=== PATIENT | male | born 1985 | race Caucasian/White ===

== ENCOUNTER 2022-09-06 17:55 | Emergency (ER) | payer SELFPAY ==
[2022-09-06 18:00] VITALS: BP 124/62; PULSE 100; RESP 16; TEMP 36.4; O2SAT 98; BMI 24.4
--- NOTE | 2022-09-06 18:41 | ED.SKABFB ---
HPI - Skin/Abscess/Foreign Bdy General Chief complaint: Skin/Abscess/Foreign Body Stated complaint: CELLULITIS IN ARMPIT Time Seen by Provider: 09/06/22 18:18 History of Present Illness HPI narrative: This 37-year-old male comes in requesting a change of the packing in a left axillary abscess. He began having evidence of infection an abscess in the left axillary region about a week ago but was incarcerated and did not have access to medical care. After being discharged he went into clinic yesterday and had incision and drainage. He has started taking Bactrim. He comes in today because that clinic is not open and is instructed to have the packing changed. Related Data Allergies Allergy/AdvReac Type Severity Reaction Status Date / Time amoxicillin Allergy Verified 09/06/22 18:07 penicillin V AdvReac Verified 09/06/22 18:07 Review of Systems Status of ROS: Reports: 10 or more systems reviewed and unremarkable except as noted in History and below Narrative: Constitutional: No fevers, no weight gain or loss. Eyes: No discharge. No vision changes. HENT: No congestion, no sore throat, no ear pain. Cardiovascular: No chest pain, no palpitations. Respiratory: No shortness of breath, no wheezes, no cough. Gastrointestinal: No abdominal pain, no vomiting, no diarrhea. Genitourinary: No dysuria, no hematuria. Musculoskeletal: Normal range of motion. Skin: No rashes, no pruritis. Left axillary abscess. Neurological: No dizziness, weakness, sensory change, speech change. Endo/Heme/Allergies: No bruising or bleeding. No polydipsia. Pysch: no suicidality, no anxiety, no insomnia. All other systems reviewed and are negative. Exam Narrative: Exam Narrative: Constitutional: Well-developed, well-nourished, no acute distress. HEENT: Normocephalic, atraumatic. Neck: Normal range of motion. Nontender. Supple. Heart: Regular. No murmurs. Normal rate. Intact distal pulses. Lungs: Clear to auscultation. No chest discomfort. No wheezes, rhonchi, or rales. Abdomen: Normal bowel sounds. Nontender. No rebound tenderness. Genitalia: Deferred. Back: No midline tenderness. Normal range of motion. Extremities: Normal range of motion. No injury. Skin: Intact. No rash. Left axillary region has erythema that is decreased significantly from the ink line that was drawn around its border yesterday. There is packing in gauze in place. Neurologic: No altered sensation. No weakness. Alert and oriented. Psychiatric: No suicidality. No anxiety or depression. No insomnia. Nursing notes and vitals signs are reviewed. Const: Vital Signs, click to edit/add: Vital Signs - 24 hr 09/06/22 18:00 Temperature 97.6 F Pulse Rate [Left P ulse Oximeter] 100 Respiratory Rate 16 Blood Pressure [Ri ght Upper Arm] 124/62 Pulse Oximetry 98 Oxygen Delivery Me thod Room Air Course Vital Signs Vital signs: Initial Vital Signs Temperature 97.6 F 09/06/22 18:00 Temperature Source Temporal Artery Scan 09/06/22 18:00 Pulse Rate 100 09/06/22 18:00 Respiratory Rate 16 09/06/22 18:00 Blood Pressure 124/62 09/06/22 18:00 Blood Pressure Mean 82 09/06/22 18:00 Pulse Oximetry 98 09/06/22 18:00 Oxygen Delivery Method 09/06/22 18:00 Vital Signs Temperature 97.6 F 09/06/22 18:00 Pulse Rate 100 09/06/22 18:00 Respiratory Rate 16 09/06/22 18:00 Blood Pressure 124/62 09/06/22 18:00 Pulse Oximetry 98 09/06/22 18:00 Oxygen Delivery Method 09/06/22 18:00 Temperature 97.6 F 09/06/22 18:00 Pulse Rate 100 09/06/22 18:00 Respiratory Rate 16 09/06/22 18:00 Blood Pressure 124/62 09/06/22 18:00 Pulse Oximetry 98 09/06/22 18:00 Oxygen Delivery Method 09/06/22 18:00 MDM - Skin/Abscess/Foreign Bdy MDM Narrative Medical decision making narrative: This patient comes in for change of his packing and dressing on the left axillary abscess that was treated yesterday. I removed the packing and placed 1 quarter-inch iodoform gauze back into the abscess opening. This was covered by a nonstick dressing. The wound appears to be healing normally. He is okay to be discharged home to continue his current plans and follow-up with his doctor as scheduled. Discharge Plan Discharge Clinical Impression: Abscess of skin or subcutaneous tissue Patient Disposition: Home, Self-Care Condition: Stable Additional Instructions: Keep dressing in place. Follow-up with primary physician as scheduled. Return if worsening. Stand Alone Forms: [employer] Info Instructions
--- OUTSIDE RECORDS SUMMARY | 2022-09-06 18:50 | XMS_ITS | Encounter Summary ---
:1985 Author Organization [facility] Address [address] [place] [address] Care Team Providers Name Role Phone No Contact, Pcp Primary Care Provider Unavailable Reason for Visit Reason Comments Medication Problem Encounter Details Date Type Department Care Team Description 09/06/2022 Clinical Communication [facility] of [facility] [place] Velva, Jammie, M.S.N. [address] [phone] Social History Tobacco Use Types Packs/Day Years Used Date Smoking Tobacco: Every Day Cigarettes 1 Smokeless Tobacco: Never Alcohol Use Standard Drinks/Week Comments Not Currently 0 (1 standard drink = 0.6 oz pure alcoho l) Sex Assigned at Date Recorded Not on file documented as of this encounter Miscellaneous Notes Telephone Encounter - Christy Griffiths, C.M.A. - 09/06/2022 3:34 PM CDT I called the Pharmacy pt has not picked up his RX. documented in this encounter Plan of Treatment Not on filedocumented as of this encounter Visit Diagnoses Not on filedocumented in this encounter Care Teams Gun Club Manager Relationship Specialty Start Date End Date No Contact, Pcp PCP - General Family Medicine 05/15/21 documented as of this encounter
--- OUTSIDE RECORDS SUMMARY | 2022-09-06 18:50 | XMS_ITS | Clinical Summary ---
:1985 Author Organization [facility] Address [address] [place] [address] Care Team Providers Name Role Phone No Contact, Pcp Primary Care Provider Unavailable Source Comments Patient records contain information from all sites at [facility]. For routine questions regarding patient records, call [phone] during business hours, M-F 8:00 AM - 5:00 PM Central Time. Record requests for emergency care only can be directed to [phone] at any time.[facility] Allergies Active Allergy Reactions Severity Noted Date Comments Amoxicillin Rash 06/27/2018 Penicillins Rash 09/21/2008 Medications Medication Sig Dispensed Refills Start Date End Date Status sulfamethoxazole-trim Take 1 tablet by 14 tablet 0 09/05/2022 09/15/2022 Active ethoprim (BACTRIM DS) mouth every 12 800-160 mg per tablet (twelve) hours for 10 days. Active Problems No known active problems Encounters Date Type Specialty Care Team Description 09/06/2022 Clinical Communication Family Medicine Angela, Me dication Problem ALTAF Shanks, C.N.P., M.S.N. 09/05/2022 Ancillary Procedure Arrived 09/05/2022 Office Visit Family Medicine Angela, Abscess Ches t (Primary Dx); ALTAF Shakns, Cellulitis Ches t C.N.P., M.S.N. 09/05/2022 Clinical Communication Family Medicine [place] Miller APRN, C.N.P., M.S.N. from Last 3 Months Immunizations Name Administration Dates Next Due H1N1 All Forms 11/23/2009 Tdap 06/27/2018 Social History Tobacco Use Types Packs/Day Years Used Date Smoking Tobacco: Every Day Cigarettes 1 Smokeless Tobacco: Never Tobacco Cessation: Ready to Quit: Not As ked; Counseling Given: Not Answered Alcohol Use Standard Drinks/Week Comments Not Currently 0 (1 standard drink = 0.6 oz pure alcoho l) Sex Assigned at Date Recorded Not on file Last Filed Vital Signs Vital Sign Reading Time Taken Comments Blood Pressure 139/83 09/05/2022 3:11 PM CDT Pulse 99 09/05/2022 3:11 PM CDT Temperature 35.2 ??C (95.4 ??F) 09/05/2022 3:11 PM CDT Respiratory Rate 20 09/05/2022 3:11 PM CDT Oxygen Saturation - - Inhaled Oxygen Concentration - - Weight 84 kg (185 lb 1.6 oz) 09/05/2022 3:11 PM CDT Height 182.9 cm (6') 09/05/2022 3:11 PM CDT Body Mass Index 25.1 09/05/2022 3:11 PM CDT Plan of Treatment Health Maintenance Due Date Last Done Comments HIV Screening 1986 Hepatitis B Vaccines (1 of 3 - 3-dose series) 1986 Hepatitis C Screening 1986 Lipid (Cholesterol) Screening 1986 Tobacco Cessation counseling 1986 COVID-19 Vaccine (#1) 1986 Pneumococcal vaccine (0-64 years) (1 - PCV) 1992 Depression Screening (Annual PHQ-2) 11/25/2021 Influenza Vaccine (#1) 2022 DTaP,Tdap,and Td Vaccines (2 - Td or Tdap) 06/27/202806/27 Procedures Procedure Name Priority Date/Time Associated Diagnosis Comme nts CBC WITH Routine 09/05/2022 4:07 PM Abscess Chest Results for this DIFFERENTIAL, B CDT procedure ar e in the results section. BASIC METABOLIC Routine 09/05/2022 4:07 PM Abscess Chest Resul ts for this PANEL, S/P CDT procedure are i n the results section. C-REACTIVE PROTEIN Routine 09/05/2022 4:07 PM Abscess Chest Re sults for this (CRP), S/P CDT procedure are i n the results section. FAMILY MEDICINE Routine 09/05/2022 3:35 PM Result s for this IMAGE EXAM CDT procedure are i n the results section. INCISION AND Routine 09/05/2022 3:30 PM Abscess Chest Results for this DRAINAGE CDT procedure are i n the results section. from Last 3 Months Results (ABNORMAL) CBC with Differential, Blood (09/05/2022 4:07 PM CDT) [facility] gist Method Time Signature Hemoglobin 15.2 13.2 - 09/05/2022 [facility] 16.6 g/dL 9:43 PM CDT Hematocrit 45.9 38.3 - 09/05/2022 [facility] 48.6 % 9:43 PM CDT Erythrocytes 4.97 4.35 - 09/05/2022 [facility] 5.65 9:43 PM CDT x10(12)/L MCV 92.4 78.2 - 09/05/2022 [facility] 97.9 fL 9:43 PM CDT RBC Distrib Width 13.6 11.8 - 09/05/2022 [facility] 14.5 % 9:43 PM CDT Platelet Count 212 135 - 317 09/05/2022 [facility] x10(9)/L 9:43 PM CDT Leukocytes 10.8 (H) 3.4 - 9.6 09/05/2022 [facility] x10(9)/L 9:43 PM CDT Neutrophils 7.77 (H) 1.56 - 09/05/2022 [facility] 6.45 9:43 PM CDT x10(9)/L Lymphocytes 1.59 0.95 - 09/05/2022 [facility] 3.07 9:43 PM CDT x10(9)/L Monocytes 1.39 (H) 0.26 - 09/05/2022 [facility] 0.81 9:43 PM CDT x10(9)/L Eosinophils 0.00 (L) 0.03 - 09/05/2022 [facility] 0.48 9:43 PM CDT x10(9)/L Basophils 0.03 0.01 - 09/05/2022 [facility] 0.08 9:43 PM CDT x10(9)/L Specimen Anatomical Collection Method Collection Time Receive d Time (Source) Location / / Volume Laterality Blood (Blood, 09/05/2022 4:07 PM 09/05/20 22 9:37 Venous) CDT PM CDT [place] Miller APRN, C.N.P., M.S.N. LAB BLOOD ADD-ON Performing Organization Address City/State/ZIP Code Phon e Number [facility] [phone] [place] [address] System in [address] (ABNORMAL) CRP (C-Reactive Protein) (09/05/2022 4:07 PM CDT) athologist Signature C-Reactive 75.2 (H) <=8.0 mg/L 09/05/2022 [facility] Protein (CRP), 9:50 PM CDT P Specimen Anatomical Collection Method Collection Time Receive d Time (Source) Location / / Volume Laterality Blood (Blood, 09/05/2022 4:07 PM 09/05/20 9:37 Venous) CDT PM CDT Jamil Reich APRN.N.P., M.S.N. LAB BLOOD ADD-ON Performing Organization Address City/State/ZIP Code Phon e Number [phone] [place] [address] System [address] Basic Metabolic Panel (09/05/2022 4:07 PM CDT) athologist Signature Potassium, P 4.6 3.6 - 5.2 09/05/2022 [facility] mmol/L 9:50 PM CDT Sodium, P 138 135 - 145 09/05/2022 [facility] mmol/L 9:50 PM CDT Chloride, P 100 98 - 107 09/05/2022 [facility] mmol/L 9:50 PM CDT Bicarbonate, P 28 22 - 29 09/05/2022 [facility] mmol/L 9:50 PM CDT Anion Gap, P 10 7 - 15 09/05/2022 [facility] 9:50 PM CDT BUN (Blood Urea 22 8 - 24 09/05/2022 [facility] Nitrogen), P mg/dL 9:50 PM CDT Creatinine 1.11 0.74 - 09/05/2022 [facility] 1.35 mg/dL 9:50 PM CDT Estimated GFR 88 >=60 09/05/2022 [facility] (eGFR) mL/min/BSA 9:50 PM CDT Comment: Estimated GFR calculated using the 2020 CKD_EPI creatinine equation. Calcium, Total, P 9.1 8.6 - 10.0 mg/dL 09/05/2022 9:50 PM CDT [facility] Glucose, P 93 70 - 140 mg/dL 09/05/2022 9:50 PM CDT [facility] Specimen Anatomical Collection Method Collection Time Receive d Time (Source) Location / / Volume Laterality Blood (Blood, 09/05/2022 4:07 PM 09/05/20 22 9:37 Venous) CDT PM CDT Farhan Reich APRNNBoyd, M.S.N. LAB BLOOD ADD-ON Performing Organization Address City/[facility]/ZIP Code Phon e Number [facility]- [address] [place] [address] [phone] [facility] [place] [address] [address] Chest-Family Medicine Image Exam (09/05/2022 3:35 PM CDT) Specimen (Source) Anatomical Collection Method Collection Time Re ceived Time Location / / Volume Laterality 09/05/2022 3:33 PM CDT Narrative [facility] - 09/05/2022 3:35 PM CDT This order has been created and auto-finalized to support the import of images acquired without order. The clini nori documentation to support these images can be found on the encounter ashley t produced images. Provider Not In System IMG NON RAD IMAGING PROCEDUR ES Performing Organization Address City/[facility] Code Phon e Number [facility] NA Incision and Drainage (09/05/2022 3:30 PM CDT) Narrative [place] Miller APRN, Jamil.N.Aleida., M.S.N. - 09/05/2022 3:30 PM CDT [place] Miller APRN, C.N.PWinter, M.S.N. ? 09/05/2022 ??8:52 PM Incision and Drainage Performed by: [place]ma Miller APRN, Jamil .N.P., M.S.N. Authorized by: Rimma Miller APRN, Jamil.N.PWinter, M.S.N. Care team members present 1. Rimma Miller APRN, C.N.Aleida., M.S. N. 3. Christy Griffiths C.M.A. 5. Inna Ferguson L.P.N. PROCEDURE DETAILS Complexity: simple Ultrasound image guidance used to locali ze target, identify at risk structures, and dynamically used to dire ct therapy to the target. Image(s) not saved. Needle aspiration: no ?? Incision types: stab incision Incision depth: dermal Incision length (cm): 1 Scalpel blade: 11 Wound management: manually decompressed Drainage: purulent Drainage amount: copious Fluid removed amount (mL): 30 Specimen: specimen sent per request Wound treatment: wound packed Packing materials: 11/28 in iodoform gauze Procedural Medication The following medications were administe red at the target site(s): ?? 1 mL lidocaine-EPINEPHrine 1 %-1:100,000 CONSENT Consent obtained: verbal Consent given by: patient PRE PROCEDURE DETAILS Indication: abscess Location: axilla Axilla location: left axilla Length (cm): 6 Width (cm): 6 Site preparation: chlorhexidine SEDATION / ANESTHESIA Anesthesia method: local infiltration Local anesthetic: lidocaine 1% WITH epi POST PROCEDURE DETAILS Procedure completed successfully: yes ?? Tetanus status up to date: ??Up to date Complications: no immediate complication s ?? Comments Patient tolerated I and D fairly with so me pain Mildly tachycardic upon arrival After I and D , heart rate slowed Iodoform packing placed Lesion is infected, antibiotics prescrib ed Re-eval tomorrow with colleague Rimma Miller APRN, C.N.P., M.S.N. PROCEDURE/MINOR SURGICAL ORDERABLES from Last 3 Months Care Teams Vice President Of Instruction Relationship Specialty Start Date End Date No Contact, Pcp PCP - General Family Medicine 05/15/21
--- OUTSIDE RECORDS SUMMARY | 2022-09-06 18:50 | XMS_ITS | Encounter Summary ---
:1985 Author Organization [facility] Address [address] [place] [address] Care Team Providers Name Role Phone No Contact, Pcp Primary Care Provider Unavailable Encounter Details Date Type Department Care Team Description 09/05/2022 Clinical Communication [facility] M.S.N. [address] [place] [phone] Social History Tobacco Use Types Packs/Day Years Used Date Smoking Tobacco: Every Day Cigarettes 1 Smokeless Tobacco: Never Alcohol Use Standard Drinks/Week Comments Not Currently 0 (1 standard drink = 0.6 oz pure alcoho l) Sex Assigned at Date Recorded Not on file documented as of this encounter Plan of Treatment Not on filedocumented as of this encounter Visit Diagnoses Not on filedocumented in this encounter Care Teams Financial Services Professional Relationship Specialty Start Date End Date No Contact, Pcp PCP - General Family Medicine 05/15/21 documented as of this encounter
--- OUTSIDE RECORDS SUMMARY | 2022-09-06 18:50 | XMS_ITS | Clinical Summary ---
:1985 Author Organization [facility] [place] [address] Care Team Providers Name Role Phone Doctor, No Primary Care Provider Unavailable Allergies Active Allergy Reactions Severity Noted Date Comments Amoxicillin Rash 06/27/2018 Penicillins Rash 09/21/2008 Medications Medication Sig Dispensed Refills Start Date End Date Status sulfacetamide (BLEPH-10) Place 1 Drop 1 Bottle 0 09/27/2019 Active 10 % ophthalmic into left eye solutionIndications: every 3 hours. Abrasion of left cornea, initial encounter Active Problems Not on file Immunizations Name Administration Dates Next Due Tdap 06/27/2018 Social History Tobacco Use Types Packs/Day Years Used Date Current Every Day Smoker Cigarettes 1 Smokeless Tobacco: Never Used Tobacco Cessation: Ready to Quit: No; Co unseling Given: Yes Alcohol Use Standard Drinks/Week Comments No 0 (1 standard drink = 0.6 oz pure alcoho l) Sex Assigned at Date Recorded Not on file Obstetrics History Last Filed Vital Signs Vital Sign Reading Time Taken Comments Blood Pressure 144/88 05/15/2021 2:21 PM CDT Pulse 81 05/15/2021 2:21 PM CDT Temperature 36.1 ??C (97 ??F) 05/15/2021 2:21 PM CDT Respiratory Rate 18 05/15/2021 2:21 PM CDT Oxygen Saturation 99% 05/15/2021 2:21 PM CDT Inhaled Oxygen Concentration - - Weight 88.5 kg (195 lb) 05/15/2021 2:21 PM CDT Height 185.4 cm (6' 1) 05/15/2021 2:21 PM CDT Body Mass Index 25.73 05/15/2021 2:21 PM CDT Plan of Treatment Health Maintenance Due Date Last Done Comments COVID-19 vaccine series (#1) 1986 Depression screening for age 12+ 1998 BMI (ht and wt on same day) for age 18+ 2004 Hepatitis C screening for age 18-79 2004 Lipids for age 35-44 2021 Influenza for age 9-49 07/26/2022 Tetanus booster 06/27/2028 06/27/2018 Tdap Completed 06/27/2018 Results Not on filefrom Last 3 Months Care Teams Certified Retinal Angiographer Relationship Specialty Start Date End Date Doctor, No PCP - General 08/18/08 .
--- OUTSIDE RECORDS SUMMARY | 2022-09-06 18:50 | XMS_ITS | Encounter Summary ---
:1985 Author Organization [facility] Address [address] [place] [address] Care Team Providers Name Role Phone No Contact, Pcp Primary Care Provider Unavailable Encounter Details Date Type Department Care Team Description 09/05/2022 Ancillary Procedure Department of Family Medicine Arrived Social History Tobacco Use Types Packs/Day Years Used Date Smoking Tobacco: Every Day Cigarettes 1 Smokeless Tobacco: Never Alcohol Use Standard Drinks/Week Comments Not Currently 0 (1 standard drink = 0.6 oz pure alcoho l) Sex Assigned at Date Recorded Not on file documented as of this encounter Plan of Treatment Not on filedocumented as of this encounter Procedures Procedure Name Priority Date/Time Associated Diagnosis Comme nts FAMILY MEDICINE Routine 09/05/2022 3:35 PM Result s for this IMAGE EXAM CDT procedure are i n the results section. documented in this encounter Results Chest-Family Medicine Image Exam (09/05/2022 3:35 PM [...] RAD IMAGING PROCEDUR ES Performing Organization Address City/State/ZIP Code Phon e Number [facility] NA documented in this encounter Visit Diagnoses Not on filedocumented in this encounter Care Teams Imaging Nurse Relationship Specialty Start Date End Date No Contact, Pcp PCP - General Family Medicine 05/15/21 documented as of this encounter
--- OUTSIDE RECORDS SUMMARY | 2022-09-06 18:50 | XMS_ITS | Encounter Summary ---
:1985 Author Organization [facility] Address [address] [place] [address] Care Team Providers Name Role Phone No Contact, Pcp Primary Care Provider Unavailable Reason for Visit Reason Comments Suicidal Encounter Details Date Type Department Care Team Description 05/15/2021 - Emergency [facility] Suicide Ideation 05/17/[address] (Primary Dx) [place] ROMO [phone] Social History Tobacco Use Types Packs/Day Years Used Date Smoking Tobacco: Never Assessed Sex Assigned at Date Recorded Not on file documented as of this encounter Plan of Treatment Not on filedocumented as of this encounter Visit Diagnoses Diagnosis Suicide Ideation - Primary documented in this encounter Care Teams Supervisor [place]chard Relationship Specialty Start Date End Date No Contact, Pcp PCP - General Family Medicine 05/15/21 documented as of this encounter
--- OUTSIDE RECORDS SUMMARY | 2022-09-06 18:50 | XMS_ITS | Encounter Summary ---
:1985 Author Organization [facility] Address [address] [place] [address] Care Team Providers Name Role Phone Unavailable Primary Care Provider Unavailable Reason for Visit Reason Comments Suicidal Encounter Details Date Type Department Care Team Description 05/13/2021 Emergency [facility] Suicide Ideation (Primary [address] Dx) [place] ROMO [phone] Social History Tobacco Use Types Packs/Day Years Used Date Smoking Tobacco: Never Assessed Sex Assigned at Date Recorded Not on file documented as of this encounter Plan of Treatment Not on filedocumented as of this encounter Visit Diagnoses Diagnosis Suicide Ideation - Primary documented in this encounter
--- OUTSIDE RECORDS SUMMARY | 2022-09-06 18:50 | XMS_ITS | Encounter Summary ---
:1985 Author Organization [facility] Address [address] [place] [address] Care Team Providers Name Role Phone No Contact, Pcp Primary Care Provider Unavailable Reason for Referral Outpatient (Routine) - Authorized Specialty Diagnoses / Procedures Referred By Contact Refer red To Contact Diagnoses Abscess Chest Rimma Miller APRN, [facility] Procedures Incision and Drainage C.N.PWinter, M.S.N. [address] [place] [phone] Referral ID Status Reason Start Date Expiration Date Visits V isits Requested Authorized [id number] Authorized 09/05/2022 09/05/2023 1 1 Reason for Visit Appointment Request (Routine) - Closed Specialty Diagnoses / Procedures Referred By Contact Refer red To Contact Family Medicine Referral ID Status Reason Start Date Expiration Date Visits Requ ested Visits Authorized [id number] Closed 09/05/2022 09/05/2023 1 1 Encounter Details Date Type Department Care Team Description 09/05/2022 Office Visit Department of Family Miller, Abscess Chest (Primary Dx); Medicine in [place], Cellulitis [place], Raymond RealNWinterPWinter, M.S.N. [address] [place] [phone] Social History Tobacco Use Types Packs/Day Years Used Date Smoking Tobacco: Every Day Cigarettes 1 Smokeless Tobacco: Never Tobacco Cessation: Ready to Quit: Not As ked; Counseling Given: Not Answered Alcohol Use Standard Drinks/Week Comments Not Currently 0 (1 standard drink = 0.6 oz pure alcoho l) Sex Assigned at Date Recorded Not on file documented as of this encounter Last Filed Vital Signs Vital Sign Reading [...] Mass Index 25.1 09/05/2022 3:11 PM CDT documented in this encounter Progress Notes Rimma Miller, [place], C.N.P., M.S.N. - 09/05/2022 3:30 PM CDT SUBJECTIVE CHIEF COMPLAINT/REASON FOR VISIT Left arm pit abscess HISTORY OF PRESENT ILLNESS Davide Dougherty is a 37 y.o. male who presents to the clinic today for a left armpit abscess that started last . He was incarcerated in [place] at that time and was started on augmentin on Saturday I believe, which he has a history of an allergy to. Then [facility] and was placed on keflex. He was given 2 days of keflex and then got out of [facility]. He fears the infection is worsening and he needs the Abscess to be lanced. He has had one abscess before. He denies a history of MRSA. He denies fevers, chills, lethargy, dizziness, lightheadedness. His tdap is UTD [id number]. He lives in [place] with a friend. He thinks his friend might be able to help him with his wound. His friend does take him to his appointments as well. The patient would like his medications today sent to [facility] in [place]. He reports he does not get routine care. REVIEW OF SYSTEMS Constitutional: - Negative for fever. The patient's social history, problem list, medications and allergies were reviewed in the electronic medical record. OBJECTIVE VITAL SIGNS BP 139/83 (BP Location: Right arm, Patient Position: Sitting, Cuff Size: Regular) Pulse 99 Temp (!) 35.2 ??C (Temporal) Resp 20 Ht 182.9 cm Wt 84 kg BMI 25.10 kg/m?? PHYSICAL EXAMINATION General: Alert disheveled male in no acute distress, nontoxic in appearance, well dressed, normal hygiene. HEENT: Head normocephalic, atraumatic, pupils equal round react to light, EOM intact. Neck: Supple. Cardiovascular: Mildly tachycardic. Reg rate. Integument: Large 6X6 cm abscess of the left axilla, raised, golf ball size, red, with erythema extending 15 cm around the raised are of fluctuance, outlined with a surgical pen. Severe pain with palpation. The area was cleansed and anesthetized with 4 cc of lido with epi and a stab incision was made centrally in the abscess with copious amounts of sanguinous and mucopurulent, malodorous drainage. Wound culture taken. Photoexam taken, area outlined. ASSESSMENT / PLAN #1 Abscess Chest - Bacterial Culture, Aerobic + Susc - CBC with Differential, Blood; Future; Expected date: 09/05/2022 - Basic Metabolic Panel; Future; Expected date: 09/05/2022 - CRP (C-Reactive Protein); Future; Expected date: 09/05/2022 - CRP (C-Reactive Protein) - Basic Metabolic Panel - CBC with Differential, Blood - Incision and Drainage #2 Cellulitis Chest Other orders - sulfamethoxazole-trimethoprim (BACTRIM DS) 800-160 mg per tablet; Take 1 tablet by mouth every 12 (twelve) hours for 10 days., Starting 09/05/2022, Until 09/15/2022, Normal Plan: I and D performed today with informed consent by patient. Copious drainage extracted. Labs pending. Cellulitis present. Area of erythema outlined. Stab incision packed with iodoform packing, 1/4 inch, with tail left out and 2X2 with tagaderm. Patient will stop previous RX and will start bactrim DS BID x 10 days, hot packing and OTC analgesiafor pain managment Recommend provider eval tomorrow with re-packing. He is agreeable to go to [place]. He will need the wound assessed, and repacked likely recurrently, and I am happy to see him back on Saturday He should do at least daily packing. Red flag s/s reviewed to return. Please see photo exam for pics. Wound culture pending. Patient is agreeable and amendable to plan Thank you for letting me be involved in your care. documented in this encounter Procedure Notes Rimma Miller APRN, C.N.P., M.S.N. - 09/05/2022 3:30 PM CDTAssociated Order(s): Incision and Drainage Post-Procedure Diagnose(s): Abscess Chest Incision and Drainage Performed by: Rimma Miller APRN, C.N.P., M.S.N. Authorized by: Rimma Miller APRN, C.N.P., M.S.N. Care team members present 1. Rimma Miller APRN, C.N.P., M.S.N. 3. Christy Griffiths, C.M.A. 5. Inna Ferguson, L.P.N. PROCEDURE DETAILS Complexity: simple Ultrasound image guidance used to localize target, identify at risk structures, and dynamically usedto direct therapy to the target. Image(s) not saved. Needle aspiration: no Incision types: stab incision Incision depth: dermal Incision length (cm): 1 Scalpel blade: 11 Wound management: manually decompressed Drainage: purulent Drainage amount: copious Fluid removed amount (mL): 30 Specimen: specimen sent per request Wound treatment: wound packed Packing materials: 1/4 in iodoform gauze Procedural Medication The following medications were administered at the target site(s): 1 mL lidocaine-EPINEPHrine 1 %-1:100,000 CONSENT Consent obtained: verbal Consent given by: patient PRE PROCEDURE DETAILS Indication: abscess Location: axilla Axilla location: left axilla Length (cm): 6 Width (cm): 6 Site preparation: chlorhexidine SEDATION / ANESTHESIA Anesthesia method: local infiltration Local anesthetic: lidocaine 1% WITH epi POST PROCEDURE DETAILS Procedure completed successfully: yes Tetanus status up to date: Up to date Complications: no immediate complications Comments Patient tolerated I and D fairly with some pain Mildly tachycardic upon arrival After I and D , heart rate slowed Iodoform packing placed Lesion is infected, antibiotics prescribed Re-eval tomorrow with colleague documented in this encounter Plan of Treatment Pending Results Name Type Priority Associated Diagnoses Date/Ti me Bacterial Culture, Microbiology Routine Abscess Chest 09/05/20 4:09 PM Aerobic + Susc CDT documented as of this encounter Procedures Procedure Name Priority Date/Time Associated Diagnosis Comme nts CBC WITH Routine 09/05/2022 4:07 PM Abscess Chest Results for this DIFFERENTIAL, B CDT procedure ar e in the results section. C-REACTIVE PROTEIN Routine 09/05/2022 4:07 PM Abscess Chest Re sults for this (CRP), S/P CDT procedure are i n the results section. BASIC METABOLIC Routine 09/05/2022 4:07 PM Abscess Chest Resul ts for this PANEL, S/P CDT procedure are i n the results section. INCISION AND Routine 09/05/2022 3:30 PM Abscess Chest Results for this DRAINAGE CDT procedure are i n the results section. documented in this encounter Results (ABNORMAL) CRP (C-Reactive Protein) (09/05/2022 4:07 PM CDT) P athologist Signature C-Reactive 75.2 (H) <=8.0 mg/L 09/05/2022 [facility] Protein (CRP), 9:50 PM CDT P Specimen Anatomical Collection Method Collection Time Receive d Time (Source) Location / / Volume Laterality Blood (Blood, 09/05/2022 4:07 PM 09/05/20 9:37 Venous) CDT PM CDT Rimma Miller APRN, C.N.P., M.S.N. LAB BLOOD ADD-ON Performing Organization Address City/State/ZIP Code Phon e Number [facility]- [address] [place] [address] [phone] [place] [address] [address] Basic Metabolic Panel (09/05/2022 4:07 PM CDT) P athologist Signature Potassium, P 4.6 3.6 - [...] 9:37 Venous) CDT PM CDT Jamil Reich APRN.N.Aleida., M.S.N. LAB BLOOD ADD-ON Performing Organization Address City/State/ZIP Code Phon e Number [facility]- [address] [place] [address] [phone] [place] [address] System [address] (ABNORMAL) CBC with Differential, Blood (09/05/2022 4:07 PM CDT) Patholo gist Method Time Signature Hemoglobin 15.2 13.2 [...] 9:37 Venous) CDT PM CDT Rimma Miller APRN C.N.P., M.S.N. LAB BLOOD ADD-ON Performing Organization Address City/State/ZIP Code Phon e Number [facility]- [address] [place] [address] [phone] [place] [address] [address] Incision and Drainage (09/05/2022 3:30 PM CDT) Narrative Rimma Miller APRN, C.N.P., M.S.N. - 09/05/2022 3:30 PM CDT Rimma Miller APRN, C.N.P., M.S.N. ? 09/05/2022 ??8:52 PM Incision and Drainage Performed by: Rimma Miller APRN, C .N.P., M.S.N. Authorized by: Rimma Miller APRN, C.NBoyd, M.S.N. Care team members present 1. Rimma Miller APRN, C.N.P., M.S. N. 3. Christy Griffiths C.MChristopher 5. Inna Ferguson L.P.N. PROCEDURE DETAILS Complexity: [...] antibiotics prescrib ed Re-eval tomorrow with colleague Farhan Reich APRNNBoyd, M.S.N. PROCEDURE/MINOR SURGICAL ORDERABLES documented in this encounter Visit Diagnoses Diagnosis Abscess Chest - Primary Cellulitis Chest documented in this encounter Administered Medications Inactive Administered Medications - up to 3 most recent administrations Medication Order MAR Action Action Date Dose Rate Site lidocaine-EPINEPHrine 1 %-1:100,000 Given 09/05/2022 8:47 PM CDT 1 mL injection 1 mL (XYLOCAINE W/EPI) 1 mL, infiltration, One-Time Injection, Starting on Sat09/05/22 at 2047, For 1 dose documented in this encounter Care Teams Scuba Instructor Relationship Specialty Start Date End Date No Contact, Pcp PCP - General Family Medicine 05/15/21 documented as of this encounter
== END 2022-09-06 18:58 | disposition home or self-care (01) ==
LOC: ED 18:48
PROVIDERS: Emergency Provider Emergency Medicine Emergency Medical Services
DX: L02.412 Cutaneous abscess of left axilla (principal)
CPT/HCPCS: 99282; 99283

== ENCOUNTER 2022-09-13 15:01 | Emergency (ER) | payer SELFPAY ==
[2022-09-13 15:38] VITALS: BP 121/70; PULSE 89; TEMP 36.4; O2SAT 98; BMI 24.4
--- OUTSIDE RECORDS SUMMARY | 2022-09-13 16:19 | XMS_ITS | Encounter Summary ---
:1985 Author Organization [facility] Address [address] [place] [address] Care Team Providers Name Role Phone No Contact, Pcp Primary Care Provider Unavailable Encounter Details Date Type Department Care Team Description 09/05/2022 Ancillary Procedure Department of Family Medicine Social History Tobacco Use Types Packs/Day Years [...] on filedocumented in this encounter Care Teams Field Professional Relationship Specialty Start Date End Date No Contact, Pcp PCP - General Family Medicine 05/15/21 documented as of this encounter
--- OUTSIDE RECORDS SUMMARY | 2022-09-13 16:19 | XMS_ITS | Encounter Summary ---
:1985 Author Organization [facility] Address [address] [place] [address] Care Team Providers Name Role Phone No Contact, Pcp Primary Care Provider Unavailable Reason for Referral Outpatient (Routine) - Authorized Specialty Diagnoses / Procedures Referred By Contact Refer red To Contact Family Medicine Rimma Miller APRN, [facility] Jamil.NBoyd, M.S.N. [address] [place] [phone] Referral ID Status Reason Start Date Expiration Date Visits V isits Requested Authorized [id number] Authorized 09/07/2022 09/06/2025 1 1 Reason for Visit Reason Comments Medication Problem Encounter Details Date Type Department Care Team Description 09/06/2022 Clinical Communication Department of Jenny Miller [facility] [place] [facility] Jammie, M.S.N. [place] [address] [place] [phone] Social History Tobacco Use Types Packs/Day Years Used Date Smoking Tobacco: Every Day Cigarettes 1 Smokeless Tobacco: Never Alcohol Use Standard Drinks/Week Comments Not Currently 0 (1 standard drink = 0.6 oz pure alcoho l) Sex Assigned at Date Recorded Not on file documented as of this encounter Miscellaneous Notes Addendum Note - Mikaela Simms S, R.N. - 09/07/2022 2:33 PM CDT Addended by: MIKAELA SIMMS on: 09/07/2022 02:33 PM Modules accepted: Orders Telephone Encounter - Mikaela Simms R.N. - 09/07/2022 2:30 PM CDT Called to check in on patient as he missed appointment for wound check yesterday 09/06/22. Patient states that he was not able to get a ride to [place], but was able to be seen in [place]. Patient states that the provider he saw in [place] only had to use a quarter of the packing that was originally placed and it was healing well. Patient states [place] provider stated to follow back up Saturday or Saturday but repacking at that time may not be needed. Patient states he picked up antibiotics, and is in agreement for return visit with Rimma Pang next week. Patient instructed if he develops a fever or any signs of infection over the weekend to report to the ED. Patient verbalized understanding and is in agreement with plan. Telephone Encounter - Christy Griffiths CWinterMWinterAWinter - 09/06/2022 3:34 PM CDT I called the Pharmacy pt has not picked up his RX. documented in this encounter Plan of Treatment Scheduled Referrals Name Type Priority Associated Diagnoses Order S [facility] Outpatient Referral Routine Expec alayna: office visit 09/11/2022, (clinic) Expires: 12/08/2023 documented as of this encounter Visit Diagnoses Not on filedocumented in this encounter Care Teams Field Artillery Operations Man Relationship Specialty Start Date End Date No Contact, Pcp PCP - General Family Medicine 05/15/21 documented as of this encounter
--- OUTSIDE RECORDS SUMMARY | 2022-09-13 16:19 | XMS_ITS | Encounter Summary ---
:1985 Author Organization [facility] Address [address] [place] [address] Care Team Providers Name Role Phone No Contact, Pcp Primary Care Provider Unavailable Encounter Details Date Type Department Care Team Description 09/05/2022 Clinical Communication Department of [facility] Medicine in [facility], [facility] mont[facility] de oca C.N.P., M.S.N. [address] [place] [phone] Social History Tobacco Use Types Packs/Day Years [...] on filedocumented in this encounter Care Teams Trauma Manager Relationship Specialty Start Date End Date No Contact, Pcp PCP - General Family Medicine 05/15/21 documented as of this encounter
--- OUTSIDE RECORDS SUMMARY | 2022-09-13 16:19 | XMS_ITS | Encounter Summary ---
:1985 Author Organization [facility] Address [address] [place] [address] Care Team Providers Name Role Phone No Contact, Pcp Primary Care Provider Unavailable Reason for Visit Reason Comments Results Encounter Details Date Type Department Care Team Description 09/11/2022 Nurse Triage Department of [facility] Yvrose Jarrell , [facility] Medicine in [facility] [address] [facility] [address] [place] [address] [place] [address] Social History Tobacco Use Types Packs/Day Years Used Date Smoking Tobacco: Every Day Cigarettes 1 Smokeless Tobacco: Never Alcohol Use Standard Drinks/Week Comments Not Currently 0 (1 standard drink = 0.6 oz pure alcoho l) Sex Assigned at Date Recorded Not on file documented as of this encounter Miscellaneous Notes Telephone Encounter - Yvrose Jarrell RNa. - 09/11/2022 12:57 PM CDT Images from the original note were not included. Chief Complaint / Reason for Call Patient is a 37 y.o. male calling regarding Results. Assessment Concern: Requesting results of bacterial culture. He states he has a follow up appointment today in 2 hours. Reviewed Chart with Patient. Bacterial Culture. Noted and read to patient. Rimma Miller APRN, C.N.P., M.S.N. 09/10/2022 7:35 AM CDT Nursing , glad that I am see Davide tomorrow in follow-up The culture did not have bactrim on the susceptibility leist He will need to switch to clindamycin I have sent in a new RX Please send me a message in return Thanks Rimma Miller APRN, C.N.P., M.S.N. Read medication script to patient and advised pharmacy - [place] [place] Calling to request: Results/Advice The recommended disposition is Information or Advice Only Call. documented in this encounter Plan of Treatment Not on filedocumented as of this encounter Visit Diagnoses Not on filedocumented in this encounter Care Teams Editorial Assistant Relationship Specialty Start Date End Date No Contact, Pcp PCP - General Family Medicine 05/15/21 documented as of this encounter
--- OUTSIDE RECORDS SUMMARY | 2022-09-13 16:19 | XMS_ITS | Encounter Summary ---
:1985 Author Organization [facility] Address [address] [place] [address] Care Team Providers Name Role Phone No Contact, Pcp Primary Care Provider Unavailable Encounter Details Date Type Department Care Team Description 09/10/2022 Orders Only Department of Family Rimma Miller, Medicine in [place], [place], C. N.P., M.S.N. [address] [address] [place] [address] [phone] Social History Tobacco Use Types Packs/Day Years [...] on filedocumented in this encounter Care Teams X Ray Physician Relationship Specialty Start Date End Date No Contact, Pcp PCP - General Family Medicine 05/15/21 documented as of this encounter
--- OUTSIDE RECORDS SUMMARY | 2022-09-13 16:20 | XMS_ITS | Encounter Summary ---
:1985 Author Organization [facility] Address [address] [place] [address] Care Team Providers Name Role Phone No Contact, Pcp Primary Care Provider Unavailable Reason for Visit Reason Comments Suicidal Encounter Details Date Type Department Care Team Description 05/15/2021 - Emergency [facility] Suicide Ideation 05/17/[address] (Primary Dx) [place] [phone] Social History Tobacco Use Types Packs/Day Years Used Date Smoking Tobacco: Never Assessed Sex Assigned at Date Recorded Not on file documented as of this encounter Plan of Treatment Not on filedocumented as of this encounter Visit Diagnoses Diagnosis Suicide Ideation - Primary documented in this encounter Care Teams Variety Lathe Operator Relationship Specialty Start Date End Date No Contact, Pcp PCP - General Family Medicine 05/15/21 documented as of this encounter
--- OUTSIDE RECORDS SUMMARY | 2022-09-13 16:20 | XMS_ITS | Encounter Summary ---
:[address] [facility] Address [address] [place] [address] Care Team Providers Name Role Phone Unavailable Primary Care Provider Unavailable Reason for Visit Reason Comments Suicidal Encounter Details Date Type Department Care Team Description 05/13/2021 Emergency [facility] Suicide Ideation (Primary [address] Dx) [place] [phone] Social History Tobacco Use Types Packs/Day Years Used Date Smoking Tobacco: Never Assessed Sex Assigned at Date Recorded Not on file documented as of this encounter Plan of Treatment Not on filedocumented as of this encounter Visit Diagnoses Diagnosis Suicide Ideation - Primary documented in this encounter
--- OUTSIDE RECORDS SUMMARY | 2022-09-13 16:20 | XMS_ITS | Clinical Summary ---
:1985 Author Organization [facility] [place] [address] Care Team Providers Name Role Phone Doctor, [...] on filefrom Last 3 Months Care Teams Clerk General Office Relationship Specialty Start Date End Date Doctor, No PCP - General 08/18/08 .
--- OUTSIDE RECORDS SUMMARY | 2022-09-13 16:20 | XMS_ITS | Encounter Summary ---
:1985 Author Organization [facility] Address [address] [place] [address] Care Team Providers Name Role Phone No Contact, Pcp Primary Care Provider Unavailable Reason for Referral Outpatient (Routine) - Authorized Specialty Diagnoses / Procedures Referred By Contact Refer red To Contact Diagnoses Abscess Chest Rimma Miller APRN, [facility] Region Procedures Incision and Drainage C.N.P., M.S.N. [address] [place] [phone] Referral ID Status Reason Start Date Expiration Date Visits V isits Requested Authorized [id number] Authorized 09/05/2022 09/05/2023 1 1 Reason for Visit Appointment Request (Routine) - Closed Specialty Diagnoses / Procedures Referred By Contact Refer red To Contact Family Medicine Referral ID Status Reason Start Date Expiration Date Visits Requ ested Visits Authorized [id number] Closed 09/05/2022 09/05/2023 1 1 Encounter Details Date Type Department Care Team Description 09/05/2022 Office Visit Department of Family Miller, Abscess Chest (Primary Dx); Medicine in [place], Cellulitis [place], Blankot a C.NWinterP., M.S.N. [address] [phone] Social History Tobacco Use Types Packs/Day Years [...] started last . He was incarcerated in [place] at that time and was started on augmentin on Saturday I believe, which he has a history of an allergy to. Then he was moved to the [facility] prison and was placed on keflex. He was given 2 days of keflex and then got out of prison. He fears the infection is worsening and he needs the Abscess to be lanced. He has had one abscess before. He denies a history of MRSA. He denies fevers, chills, lethargy, dizziness, lightheadedness. His tdap is UTD [id number]. He lives in [place] with a friend. He thinks his friend might be able to help him with his wound. His friend does take him to his appointments as well. The patient would like his medications today sent to [facility] in [place]. He reports he does not get routine [...] re-packing. He is agreeable to go to [place]. He will need the wound assessed, and [...] request Wound treatment: wound packed Packing materials: / in iodoform gauze Procedural Medication The following [...] Name Priority Date/Time Associated Diagnosis Comme nts BACTERIAL CULTURE, Routine 09/05/2022 4:09 PM Abscess Chest Re sults for this AEROBIC + SUSC CDT procedure are in the results section. CBC WITH Routine 09/05/2022 4:07 PM Abscess [...] section. documented in this encounter Results (ABNORMAL) Bacterial Culture, Aerobic + Susc (09/05/2022 4:09 PM CDT) [facility] [place] gist Method Time Signature Bacterial With skin 09/08/2022 [facility] Culture, microbiota (A) 10:18 AM Aerobic + CDT Susc Bacterial STREPTOCOCCUS ANGINOSUS GROUP 09/08/2022 [facility] Culture, 4+ 10:18 AM Aerobic + (A) CDT Susc Specimen (Source) Anatomical Collection Method Collection Time Re ceived Time Location / / Volume Laterality Swab, Superficial 09/05/2022 4:09 022 (Axilla, Left) PM CDT 11:38 PM CDT Comment: Specimen Source Site: Swab, Sup erficial Organism Antibiotic Method Susceptibility Streptococcus anginosus Penicillin SUSCEPTIBILITY, RANI <=0. 06 mcg/mL: Susceptible group (MCG/ML) Streptococcus anginosus Ampicillin SUSCEPTIBILITY, RANI <=0. 25 mcg/mL: Susceptible group (MCG/ML) Streptococcus anginosus Ceftriaxone SUSCEPTIBILITY, RANI <=0. 12 mcg/mL: Susceptible group (MCG/ML) Streptococcus anginosus Levofloxacin SUSCEPTIBILITY, RANI <=0. 25 mcg/mL: Susceptible group (MCG/ML) Streptococcus anginosus Erythromycin SUSCEPTIBILITY, RANI <=0. 12 mcg/mL: Susceptible group (MCG/ML) Streptococcus anginosus Clindamycin SUSCEPTIBILITY, RANI <=0. 25 mcg/mL: Susceptible group (MCG/ML) Streptococcus anginosus Vancomycin SUSCEPTIBILITY, RANI 0.25 mcg/mL: Susceptible group (MCG/ML) Streptococcus anginosus Tetracycline SUSCEPTIBILITY, RANI <=0. 25 mcg/mL: Susceptible group (MCG/ML) Jamil Reich APRN.N.Aleida., M.S.N. LAB MICROBIOLOGY - GENERAL ORDERABLES Performing Organization Address City/[facility] Phon e Number [facility]- [address] [place] [phone] [place] [address] [place] [address] [address] (ABNORMAL) CRP (C-Reactive Protein) (09/05/2022 4:07 PM CDT) athologist Signature C-Reactive 75.2 (H) <=8.0 mg/L 09/05/2022 [facility] Protein (CRP), 9:50 PM CDT Specimen Anatomical Collection Method Collection Time Receive d Time (Source) Location / / Volume Laterality Blood (Blood, 09/05/2022 4:07 PM 09/05/20 22 9:37 Venous) CDT PM CDT Jamil Reich APRN.N.P., M.S.N. LAB BLOOD ADD-ON Performing Organization Address City/[facility]/ZIP [facility] Phon e Number [address], [place] [phone] [facility] [address] System [address] Basic Metabolic Panel (09/05/2022 4:07 PM [...] Organization Address City/State/ZIP Code Phon e Number [facility]- [address] [place] [phone] [facility] [place] [address] [address] (ABNORMAL) CBC with Differential, Blood (09/05/2022 [...] 9:37 Venous) CDT PM CDT Farhan Reich APRNNAby., M.S.N. LAB BLOOD ADD-ON Performing Organization Address City/State/ZIP Code Phon e Number [facility]- [address] [place] [phone] [facility] [place] [address] [address] Incision and Drainage (09/05/2022 3:30 PM CDT) Narrative Rimma Miller APRN, C.N.Aleida., M.S.N. - 09/05/2022 3:30 PM CDT Rimma Miller APRN, C.NBoyd, M.S.N. ? 09/05/2022 ??8:52 PM Incision and Drainage Performed by: Rimma Miller APRN, C .N.Dorian, M.S.N. Authorized by: Rimma Miller APRN, C.NBoyd, M.S.N. Care team members present 1. Rimma Miller APRN, C.N.P., M.S. NWinter 3. Christy Griffiths C.M.A. 5. Inna eFrguson L.P.N. 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
--- NOTE | 2022-09-13 16:24 | ED_ITS ---
HPI - Skin/Abscess/Foreign Bdy General Chief complaint: Skin/Abscess/Foreign Body Stated complaint: Arm Pit Infection Time Seen by Provider: 09/13/22 16:12 History of Present Illness HPI narrative: This 37-year-old male comes in for removal of a iodoform gauze in the left axillary region. This actually was placed by me about a week ago. A few days prior to that he head packing placed for a large abscess in his axilla. He states that he is currently not having any pain. He comes in to have this gauze removed so the wound can heal. He did contact his primary physician in a different community who indicated that he should continue with clindamycin. He does have a prescription for this medicine. He does not report any fevers and states that he is feeling much better. Related Data Home Medications Medication Instructions Recorded Confirmed clindamycin HCl 300 mg capsule mg 09/13/22 Allergies Allergy/AdvReac Type Severity Reaction Status Date / Time amoxicillin Allergy Verified 09/06/22 18:07 penicillin V AdvReac Verified 09/06/22 18:07 Review of Systems Status of ROS: Reports: 10 or more systems reviewed and unremarkable except as noted in History and below Narrative: Constitutional: No fevers, no weight gain or loss. Eyes: No discharge. No vision changes. HENT: No congestion, no sore throat, no ear pain. Cardiovascular: No chest pain, no palpitations. Respiratory: No shortness of breath, no wheezes, no cough. Gastrointestinal: No abdominal pain, no vomiting, no diarrhea. Genitourinary: No dysuria, no hematuria. Musculoskeletal: Normal range of motion. Skin: No rashes, no pruritis. Healing abscess in the left axilla. Neurological: No dizziness, weakness, sensory change, speech change. Endo/Heme/Allergies: No bruising or bleeding. No polydipsia. Pysch: no suicidality, no anxiety, no insomnia. All other systems reviewed and are negative. PFSH PFSH Social History Smoking Status: Current every day smoker What tobacco products do you use: cigarettes Smoking packs per day: 1 Smoking cigarettes per day: 20.0 Do you use any of these nicotine containing products: None Second hand tobacco smoke exposure: No How often do you have a drink containing alcohol: never How often do you have six or more drinks on one occasion: Never AUDIT-C Alcohol total score: 0 Non-prescribed substance use: denies use Exam Narrative: Exam Narrative: Constitutional: Well-developed, well-nourished, no acute distress. HEENT: Normocephalic, atraumatic. Neck: Normal range of motion. Nontender. Supple. Heart: Intact distal pulses. Lungs: No chest discomfort. No wheezes, rhonchi, or rales. Abdomen: Nontender. Back: Normal range of motion. Extremities: Normal range of motion. No injury. Skin: Iodoform gauze is in place at the site of an abscess in the left axilla. Neurologic: No altered sensation. No weakness. Alert and oriented. Psychiatric: No suicidality. No anxiety or depression. No insomnia. Nursing notes and vitals signs are reviewed. Const: Vital Signs, click to edit/add: Vital Signs - 24 hr 09/13/22 15:38 Temperature 97.6 F Pulse Rate [Right] 89 Blood Pressure [Le ft Upper Arm] 121/70 Pulse Oximetry 98 Oxygen Delivery Me thod Room Air Course Vital Signs Vital signs: Initial Vital Signs Temperature 97.6 F 09/13/22 15:38 Temperature Source Temporal Artery Scan 09/13/22 15:38 Pulse Rate 89 09/13/22 15:38 Blood Pressure 121/70 09/13/22 15:38 Blood Pressure Mean 87 09/13/22 15:38 Blood Pressure Position Sitting 09/13/22 15:38 Pulse Oximetry 98 09/13/22 15:38 Oxygen Delivery Method 09/13/22 15:38 Vital Signs Temperature 97.6 F 09/13/22 15:38 Pulse Rate 89 09/13/22 15:38 Blood Pressure 121/70 09/13/22 15:38 Pulse Oximetry 98 09/13/22 15:38 Oxygen Delivery Method 09/13/22 15:38 Temperature 97.6 F 09/13/22 15:38 Pulse Rate 89 09/13/22 15:38 Blood Pressure 121/70 09/13/22 15:38 Pulse Oximetry 98 09/13/22 15:38 Oxygen Delivery Method 09/13/22 15:38 MDM - Skin/Abscess/Foreign Bdy MDM Narrative Medical decision making narrative: This patient comes in for removal of gauze from his left axillary region. His wound is doing much better and states that he is not having any pain. He is continuing to take clindamycin. I did remove the iodoform gauze and this wound should heal by secondary intention. Discharge Plan Discharge Clinical Impression: Abscess of skin or subcutaneous tissue Patient Disposition: Home, Self-Care Condition: Stable Additional Instructions: Take clindamycin as prescribed. Follow up with MD or return if worsening. Prescriptions: No Action clindamycin HCl 300 mg capsule Label Comments: TAKE ONE CAPSULE BY MOUTH EVERY SIX HOURS FOR 7 DAYS Follow Up/Referrals: Provider,Not a Local [Primary Care Provider] - Stand Alone Forms: [employer] Info Instructions
== END 2022-09-13 16:32 | disposition home or self-care (01) ==
PROVIDERS: Emergency Provider Emergency Medicine Emergency Medical Services
DX: Z48.01 Encounter for change or removal of surgical wound dressing (principal)
CPT/HCPCS: 99282; 99283